=== PATIENT | male | born 1935 | race Caucasian/White ===

== ENCOUNTER 2021-04-02 13:14 | Inpatient (IN) | payer MEDICARE ==
[~2021-04-02 13:14] MED LIST: Furosemide 20 MG TAB PO SCH
[2021-04-02 15:19] VITALS: BMI 26.8
[2021-04-02] MEDS ORDERED: HYDROcodone/Acetaminophen 7.5/325 mg Tablet PO PRN (17:35)
[2021-04-02] MEDS ORDERED: HYDROcodone/Acetaminophen 5/325 mg Tablet PO PRN (17:35)
[2021-04-02] MEDS ORDERED: Acetaminophen 325 MG TAB PO PRN (17:35)
[2021-04-02] MEDS ORDERED: Ondansetron PF 4 MG/2 ML Vial IVP PRN (17:35)
[2021-04-02] MEDS ORDERED: Bisacodyl 5 MG TAB PO PRN (17:35)
[2021-04-02] MEDS ORDERED: Senokot S 8.6-50 MG TAB PO PRN (17:35)
[2021-04-02] MEDS ORDERED: Melatonin 3 MG TAB PO PRN (17:42)
[2021-04-02] MEDS ORDERED: hydrALAZINE 20 MG/ML VIAL SLOW IVP PRN (17:42)
[2021-04-02] MEDS ORDERED: Amiodarone 200 MG TAB PO SCH (18:15)
[2021-04-02] MEDS ORDERED: Clopidogrel Bisulfate 75 MG TAB PO SCH (18:45)
[2021-04-02] MEDS ORDERED: Furosemide 20 MG TAB PO SCH (19:00)
[2021-04-02] MEDS ORDERED: Famotidine/PF 20 mg/2ml Vial SLOW IVP SCH (21:00)
[2021-04-02] MEDS ORDERED: Atorvastatin Calcium 40 MG TAB PO SCH (21:00)
[2021-04-02] MEDS: Carvedilol 6.25 MG TAB PO SCH (22:02)
[2021-04-02] MEDS ORDERED: Sodium Chloride 0.65% Nasal 44 ML BOT EA NARE PRN (23:41)
[2021-04-03 06:21] LABS: #Basophils 0.1 thou/uL (0.0-0.2); #Eosinphils 0.1 thou/uL (0.0-0.7); #Lymphocytes 1.9 thou/uL (1.20-3.40); #Monocytes 1.5 thou/uL (0.11-0.59); #Neutrophils 6.8 thou/uL (1.40-6.50); %Basophils 0.7 % (0.0-1.0); %Eosinophils 0.8 % (0.0-10.0); %Lymphocytes 18.2 % (21.0-51.0); %Monocytes 14.5 % (0.0-10.0); %Neutrophils 65.7 % (42.0-75.0); Hemoglobin 11.9 g/dL (14.0-18.0); Mean Corpuscular HGB CONC 33.3 g/dL (32.0-36.0); Mean Corpuscular Hemoglobin 32.2 pg (27.0-31.0); Mean Corpuscular Volume 96.8 fL (78.0-98.0); Mean Platelet Volume 10.1 fL (7.4-10.4); Platelet Count 149 thou/uL (130-400); RBC Distribution Width 12.1 % (11.5-14.5); Red Blood Cell (RBC) Count 3.71 mill/uL (4.70-6.10); White Blood Cell (WBC) Count 10.4 thou/uL (4.8-10.8)
[2021-04-03 06:37] LABS: Hemoglobin A1c 5.2 % (4.0-6.0)
[2021-04-03 06:43] LABS: Anion Gap 14 mmol/L (10-20); BUN (Urea Nitrogen) 23 mg/dL (8.4-25.7); Calc. Creatinine Clearance 45 mL/min (70-130); Calcium 8.9 mg/dL (7.8-10.44); Carbon Dioxide 27 mmol/L (23-31); Chloride 103 mmol/L (98-107); Cholesterol 198 mg/dl (< 200 Desired); Glucose 99 mg/dL (83-110); HDL Cholesterol 40 mg/dL (>60 Neg Risk); LDL Cholesterol, Calculated 131 mg/dL; Sodium 140 mmol/L (136-145); Triglycerides 133 mg/dL (Less than 150)
[2021-04-03] MEDS ORDERED: Amiodarone 200 MG TAB PO SCH (09:00)
[2021-04-03] MEDS ORDERED: Clopidogrel Bisulfate 75 MG TAB PO SCH (09:00)
[2021-04-03] MEDS ORDERED: Terazosin HCl 5 MG CAP PO SCH (09:00)
[2021-04-03] MEDS ORDERED: Furosemide 20 MG TAB PO SCH (09:00)
[2021-04-03] MEDS ORDERED: Losartan 25 MG TAB PO SCH (09:00)
[2021-04-03] MEDS: Carvedilol 6.25 MG TAB PO SCH (09:48)
[2021-04-03 16:13] VITALS: TEMP 97.6
[2021-04-03] MEDS ORDERED: Famotidine/PF 20 mg/2ml Vial SLOW IVP SCH (21:00)
[2021-04-03 22:13] VITALS: BP 108/55
[2021-04-05] MEDS ORDERED: Furosemide 20 MG TAB PO SCH ×2 (09:00)
== END 2021-04-03 18:10 | disposition home or self-care (01) | DRG 65 ==
LOC: OBSVTOIN 13:14 → 3SE 13:14
PROVIDERS: ADMIT Family Medicine; ATTEND Internal Medicine
DX: I63.519 Cerebral infarction due to unspecified occlusion or stenosis of unspecified middle cerebral artery (principal); I42.9 Cardiomyopathy, unspecified; I50.32 Chronic diastolic (congestive) heart failure; N17.9 Acute kidney failure, unspecified; I11.0 Hypertensive heart disease with heart failure; E78.5 Hyperlipidemia, unspecified; R29.701 NIHSS score 1; R29.810 Facial weakness; Z79.899 Other long term (current) drug therapy; Z79.82 Long term (current) use of aspirin; Z85.01 Personal history of malignant neoplasm of esophagus; Z98.890 Other specified postprocedural states; Z86.16 Personal history of COVID-19
CPT/HCPCS: 36415; 80048; 80061; 83036; 83880; 85025; 93306; 93880; S0028

== ENCOUNTER 2022-07-25 10:33 | Outpatient (CLI) | payer MEDICARE ==
[2022-07-25 12:33] LABS: #Basophils 0.1 10x3/uL (0.0-0.2); #Eosinphils 0.2 10x3/uL (0.0-0.5); #Monocytes 0.8 10x3/uL (0.0-1.1); #Neutrophils 4.6 10x3/uL (1.5-8.4); %Basophils 0.9 % (0.0-2.0); %Eosinophils 2.7 % (0.0-6.0); %Lymphocytes 25.1 % (18.0-47.0); %Monocytes 10.9 % (0.0-10.0); %Neutrophils 60.3 % (40.0-75.0); Mean Corpuscular HGB CONC 30.6 g/dL (32.0-36.0); Mean Corpuscular Hemoglobin 29.6 pg (27.0-33.0); Mean Platelet Volume 12.2 fl (7.4-10.4); Platelet Count 162 10x3/uL (150-450); RBC Distribution Width 14.2 % (11.5-14.5); Red Blood Cell (RBC) Count 3.71 10x6/uL (4.32-5.72); White Blood Cell (WBC) Count 7.6 10x3/uL (3.5-10.5)
[2022-07-25 12:34] LABS: Anion Gap 14 mmol/L (10-20); BUN (Urea Nitrogen) 25 mg/dL (8.4-25.7); Calc. Creatinine Clearance 0 mL/min (70-130); Calcium 9.2 mg/dL (7.8-10.44); Carbon Dioxide 26 mmol/L (23-31); Chloride 107 mmol/L (98-107); Estimated GFR 40; Glucose 91 mg/dL (83-110); Potassium 4.2 mmol/L (3.5-5.1); Sodium 143 mmol/L (136-145)
== END 2022-07-25 10:34 | disposition home or self-care (01) ==
LOC: LABBT 10:33
PROVIDERS: ATTEND Orthopaedic Surgery
DX: Z01.818 Encounter for other preprocedural examination (principal); M19.011 Primary osteoarthritis, right shoulder
CPT/HCPCS: 80048; 85025; 93005; 93010

== ENCOUNTER 2022-07-28 07:39 | Observation (INO) | payer MEDICARE ==
[2022-07-28] MEDS ORDERED: Fentanyl 100 MCG/2 ML VIAL ONE ×2 (08:04→11:44)
[2022-07-28] MEDS ORDERED: Bupivacaine PF 0.5% 30 ML VIAL ONE (08:05)
[2022-07-28] MEDS ORDERED: Vancomycin (BATCH) 1.5 GRAM/300 ML BAG ONE (08:05)
[2022-07-28] MEDS ORDERED: Tranexamic Acid 1,000 MG/10 ML VIAL ONE (08:05)
[2022-07-28] MEDS ORDERED: Sodium Chloride 0.9% 100 ML ONE ×2 (08:05→09:05)
[2022-07-28] MEDS ORDERED: CEFAZOLIN 2 GM VIAL ONE (09:05)
[2022-07-28 09:20] LABS: SARS-CoV-2 NAA Rapid Test Not Detected (NotDetected)
[2022-07-28] MEDS ORDERED: Bupivacaine HCl 0.5%/Epinephrine 1:200,000/PF 30 ml Vial ONE (09:20)
[2022-07-28] MEDS ORDERED: HYDROcodone/Acetaminophen 7.5/325 mg Tablet PO PRN ×2 (09:32)
[2022-07-28] MEDS ORDERED: Fentanyl 100 MCG/2 ML VIAL IV PRN (09:34)
[2022-07-28] MEDS ORDERED: Ketamine 50 MG/ML (10ML VIAL) ONE (09:44)
[2022-07-28] MEDS ORDERED: Dexamethasone 20 MG/5 ML VIAL ONE (09:45)
[2022-07-28] MEDS ORDERED: PHENYLEPHRINE-NS 100 MCG/ML 10 ML SYRINGE ONE (09:45)
[2022-07-28] MEDS ORDERED: Promethazine HCl 25 MG/ML VIAL IM PRN (09:45)
[2022-07-28] MEDS ORDERED: traMADol HCl 50 MG TAB PO PRN ×2 (09:45)
[2022-07-28] MEDS ORDERED: PROPOFOL 200 MG/20 ML VIAL ONE (09:45)
[2022-07-28] MEDS ORDERED: Zolpidem Tartrate 5 MG TAB PO PRN (09:45)
[2022-07-28] MEDS ORDERED: Glycopyrrolate 0.2 MG/ML 5 ML SYRINGE ONE (09:45)
[2022-07-28] MEDS ORDERED: ePHEDrine 50 MG/ML VIAL ONE (09:45)
[2022-07-28] MEDS ORDERED: HYDROcodone/Acetaminophen 10/325 mg Tablet PO PRN ×2 (09:45)
[2022-07-28] MEDS ORDERED: Lidocaine 1% PF 5 ML VIAL ONE (09:45)
[2022-07-28] MEDS ORDERED: NEOSTIGMINE 3 MG/3 ML SYR 3 MG/3 ML SYRINGE ONE (09:45)
[2022-07-28] MEDS ORDERED: Furosemide 20 MG TAB PO SCH (09:45)
[2022-07-28] MEDS ORDERED: Rocuronium Bromide 10 MG/ML (10ML VIAL) ONE (09:45)
[2022-07-28] MEDS ORDERED: Ropivacaine 0.2% 550 ML 550 ML NERVE BLCK SCH (09:45)
[2022-07-28] MEDS ORDERED: Ondansetron PF 4 MG/2 ML Vial IVP PRN (09:45)
[2022-07-28] MEDS ORDERED: Ondansetron PF 4 MG/2 ML Vial ONE (09:45)
[2022-07-28] MEDS ORDERED: fentaNYL PF 100 MCG/2 ML SYRINGE ONE (10:26)
[2022-07-28] MEDS ORDERED: SUGAMMADEX SODIUM 200 MG/2 ML VIAL ONE (10:26)
[2022-07-28 17:02] VITALS: BMI 25.6
[2022-07-28] MEDS: CEFAZOLIN 2 GM in Sodium Chloride 0.9% 100 ML IVPB SCH (18:17)
[2022-07-28] MEDS ORDERED: Furosemide 40 MG TAB PO SCH (19:15)
[2022-07-28] MEDS: Carvedilol 6.25 MG TAB PO SCH (19:53)
[2022-07-28] MEDS ORDERED: Terazosin HCl 5 MG CAP PO SCH (21:00)
[2022-07-28] MEDS ORDERED: Aspirin 81 mg Enteric Coated Tablet PO SCH (21:00)
[2022-07-28] MEDS ORDERED: Atorvastatin Calcium 40 MG TAB PO SCH (21:00)
[2022-07-29] MEDS: CEFAZOLIN 2 GM in Sodium Chloride 0.9% 100 ML IVPB SCH (02:57)
[2022-07-29] MEDS: Carvedilol 6.25 MG TAB PO SCH (08:28)
[2022-07-29] MEDS ORDERED: Losartan 25 MG TAB PO SCH (09:00)
[2022-07-29] MEDS ORDERED: Amiodarone 200 MG TAB PO SCH (09:00)
[2022-07-29] MEDS ORDERED: Furosemide 20 MG TAB PO SCH (09:00)
[2022-07-29 10:42] VITALS: BP 120/67
[2022-07-29 12:08] VITALS: TEMP 97.8
[2022-08-01] MEDS ORDERED: Furosemide 40 MG TAB PO SCH (09:00)
== END 2022-07-29 12:08 | disposition home or self-care (01) ==
LOC: SDC 07:39 → SURG B 15:38
PROVIDERS: ADMIT Orthopaedic Surgery; ATTEND Orthopaedic Surgery
PROC: 0RRJ00Z Replacement of Right Shoulder Joint with Reverse Ball and Socket Synthetic Substitute, Open Approach (ICD-10-PCS; principal; 2022-07-28)
DX: M19.011 Primary osteoarthritis, right shoulder (principal); M75.21 Bicipital tendinitis, right shoulder; I42.9 Cardiomyopathy, unspecified; G56.20 Lesion of ulnar nerve, unspecified upper limb; Z86.73 Personal history of transient ischemic attack (TIA), and cerebral infarction without residual deficits; Z79.82 Long term (current) use of aspirin; Z79.899 Other long term (current) drug therapy; Z20.822 Contact with and (suspected) exposure to COVID-19
CPT/HCPCS: 23472; 96374; 96376; 97110 ×2; 97116 ×2; 97535; A4306; C1713 ×5; C1776 ×2; G0378 ×2; J3370; U0002; J1100; J2405; J2704; J2795; J3010; J3490; S0020